=== PATIENT | female | born 1945 | race Caucasian/White ===

== ENCOUNTER → 2017-05-14 | Outpatient (CLI) | payer MEDICARE, BC ==
[~2017-05-14] MED LIST: AMLO10TA2 PO; ASPI-146 PO; COMMODE 3-IN-11 MIS; CPMMACHINE; CYAN1TAB24 PO; DESM1TAB16 PO; ENOX40IN SQ; ESTR1TAB PO; FENO50TA PO; LIPI20TA PO; LISI40TA PO; NEXI40CA PO; NORC5TAB PO; WALKER WHEELS/F1 MIS
[2017-05-14 10:36] LABS: AUTOMATED NEUTROPHIL # 2.5 TH/MM3 (1.8-7.7); BASOPHIL # 0.1 TH/MM3 (0-0.2); BASOPHIL % 1.2 % (0.0-2.0); EOSINOPHIL # 0.1 TH/MM3 (0-0.4); EOSINOPHIL % 2.3 % (0.0-4.0); HEMATOCRIT 39.2 % (35.0-46.0); HEMO FLAGS DIFF FINAL; LYMPH % 25.7 % (9.0-44.0); LYMPHOCYTE # 1.1 TH/MM3 (1.0-4.8); MEAN CELL VOLUME 87.1 FL (80.0-100.0); MEAN CORPUSCULAR HEMOGLOBIN 28.8 PG (27.0-34.0); MONO % 12.1 % (0.0-8.0); NEUT % 58.7 % (16.0-70.0); PLATELET COUNT 287 TH/MM3 (150-450); RED CELL DISTRIBUTION WIDTH 14.3 % (11.6-17.2); WHITE BLOOD COUNT 4.2 TH/MM3 (4.0-11.0)
[2017-05-14 10:37] LABS: BLOOD, URINE NEG (NEG); GLUCOSE,URINE NEG (NEG); KETONE, URINE NEG (NEG); NITRITE,URINE NEG (NEG); PH, URINE 7.5 (5.0-8.5); SQUAMOUS EPITHELIAL CELL URINE 1 /hpf (0-5); URINE COLOR YELLOW (YELLW/STRAW)
[2017-05-14 10:42] LABS: COMMENT (UR) CULT NOT INDICATED; CULTURE IF INDICATED CULT NOT INDICATED
[2017-05-14 10:46] LABS: APTT (PATIENT) 25.7 SEC (24.3-30.1)
[2017-05-14 10:58] LABS: ANION GAP 7 MEQ/L (5-15); AST (GOT) 19 U/L (15-37); BICARBONATE 26.2 MEQ/L (21.0-32.0); BLOOD UREA NITROGEN 13 MG/DL (7-18); CHLORIDE 104 MEQ/L (98-107); GLOMERULAR FILTRATION RATE 69 ML/MIN (>89); GLUCOSE,FASTING 86 MG/DL (74-99); POTASSIUM 4.1 MEQ/L (3.5-5.1); SODIUM (NA) 137 MEQ/L (136-145)
[2017-05-14 10:59] LABS: ALT (GPT) 21 U/L (10-53)
[2017-05-14 11:01] LABS: ALKALINE PHOSPHATASE 50 U/L (45-117); TOTAL BILIRUBIN ADULT 0.6 MG/DL (0.2-1.0)
[2017-05-14 11:07] LABS: WESTERGREN SEDIMENTATION RATE 5 mm/hr (0-30)
--- NOTE | 2017-05-14 11:11 | RADRPT ---
EXAM DATE/TIME: 05/14/2017 10:46 [facility] COMPARISON: KNEE LEFT LTD (1 OR 2VWS), July 28, 2015, 13:32. INDICATIONS : Evaluate for pneumothorax, pneumonia and communicable diseases. Pre-op for right knee replacement. MEDICAL HISTORY : Hypertension. SURGICAL HISTORY : None. ENCOUNTER: Initial ACUITY: 1 day PAIN SCORE: 0/10 LOCATION: Bilateral chest FINDINGS: The cardiac and mediastinal contours are within normal limits. There is a large hiatal hernia. The vidal ngs are clear. There are degenerative changes in the thoracic spine with a mild rotatory scoliosis. CONCLUSION: 1. Hiatal hernia. 2. No acute cardiopulmonary findings. Danilo Joseph MD on May 14, 2017 at 11:09 Board Certified Radiologist. This report was verified electronically.
--- NOTE | 2017-05-15 12:01 | EKG ---
Date Performed: 05/14/2017 Time Performed: 10:11:51 PTAGE: 71 years EKG: Sinus rhythm LOW QRS VOLTAGE IN PRECORDIAL LEADS BORDERLINE ECG Compared to prior tracing no significant change PREVIOUS TRACING :07/12/15 DOCTOR: Jorden Niño Interpretating Date/Time 05/15/2017 12:00:45
== END ==
LOC: CPRE 09:50
PROVIDERS: ATTEND Orthopaedic Surgery
DX: Z01.810 Encounter for preprocedural cardiovascular examination (principal); Z01.811 Encounter for preprocedural respiratory examination; Z01.812 Encounter for preprocedural laboratory examination; Z96.60 Presence of unspecified orthopedic joint implant; M25.50 Pain in unspecified joint; M79.609 Pain in unspecified limb; M17.11 Unilateral primary osteoarthritis, right knee; R94.31 Abnormal electrocardiogram [ECG] [EKG]
CPT/HCPCS: 36415; 71020; 80053; 81001; 85025; 85610; 85652; 85730; 93005

== ENCOUNTER 2017-05-30 07:02 | Inpatient (IN) | payer MEDICARE, BC ==
[~2017-05-30] VITALS: Ht 157.5 cm; Wt 61.8 kg
[~2017-05-30 07:02] MED LIST changes: -ASPI-146 PO; -COMMODE 3-IN-11 MIS; -CPMMACHINE; -DESM1TAB16 PO; -ENOX40IN SQ; -NORC5TAB PO; -WALKER WHEELS/F1 MIS
[2017-05-30] MEDS ORDERED: SODIUM CHLOR 0.9% 250 ML INJ 250 ML ONE (08:22)
[2017-05-30] MEDS ORDERED: ceFAZolin 2 GM PREMIX 50 ML ONE (08:22)
[2017-05-30] MEDS ORDERED: VANCOMYCIN HCL 1000 MG VIAL ONE ×2 (08:22→09:19)
[2017-05-30] MEDS ORDERED: DEXAMETHASONE SOD PHOS 20 MG/5 ML VIAL ONE (08:22)
[2017-05-30] MEDS ORDERED: POVIDONE IODINE 5% (ANTISEPSIS KIT) 4 APPLICATIONS EACH NARE PRN (08:30)
[2017-05-30] MEDS ORDERED: METOPROLOL TARTRATE 25 MG TAB PO PRN (08:30)
[2017-05-30] MEDS ORDERED: INSULIN HUMAN REGULAR 1,000 UNITS/10 ML VIAL SQ PRN (08:30)
[2017-05-30] MEDS ORDERED: ceFAZolin 2 GM PREMIX 50 ML IV SCH (08:30)
[2017-05-30] MEDS ORDERED: VANCOMYCIN 1000 MG/NS 250 ML (for <70 kg) IV SCH ×2 (08:30)
[2017-05-30] MEDS ORDERED: LACTATED RINGER'S 1000 ML IV PRN (08:30)
[2017-05-30] MEDS ORDERED: CHLORHEXIDINE GLUCONATE 2 % 1 PACK (2 CLOTHS) TOPICAL PRN (08:30)
[2017-05-30] MEDS ORDERED: SODIUM CHLORID 0.9% 500 ML IV PRN (08:30)
[2017-05-30] MEDS ORDERED: POVIDONE IODINE 7.5% SCRUB 118 ML BOTTLE TOPICAL SCH (08:30)
[2017-05-30] MEDS ORDERED: DEXAMETHASONE SOD PHOS 20 MG/5 ML VIAL IV SCH (08:45)
[2017-05-30] MEDS ORDERED: TRANEXAMIC ACID INJ 618 MG in SODIUM CHLORIDE 0.9% INJ 100 ML IV SCH ×2 (09:00→13:00)
[2017-05-30] MEDS ORDERED: ROPIVACAINE PERI-ARTICULAR INJECTION. P-ARTICULR SCH ×5 (09:00)
[2017-05-30] MEDS ORDERED: GENTAMICIN SULFATE 80 MG/2 ML VIAL ONE (09:18)
[2017-05-30] MEDS ORDERED: ACETAMINOPHEN 1000 MG/100 ML 100 ML IV ONE (09:33)
[2017-05-30] MEDS ORDERED: FAMOTIDINE 20 MG/2 ML VIAL ONE (09:33)
[2017-05-30] MEDS ORDERED: BUPIVACAINE LIPOSOME PF 1.3% 20 ML VIAL ONE (09:45)
[2017-05-30] MEDS: SODIUM CHLOR 0.9% 1000 ML INJ 1,000 ML IV SCH (11:31)
--- NOTE | 2017-05-30 11:33 | PD.OP ---
cc: Curt Glass MD Operative Report Date of Surgery: May 30, 2017 Preoperative Diagnosis: Right knee severe osteoarthritis Postoperative Diagnosis: Same Procedure: Right total knee arthroplasty Anesthesia: Adductor canal block and general Surgeon: Curt Glass Air Commodore(s): RONNI Lerma The surgical procedure was assisted by my Advanced Registered Nurse Practitioner. My AGENCY OPERATOR presence was necessary throughout this case for the manipulation and positioning of the surgical extremity. My AGENCY OPERATOR was assisting me throughout the duration of this procedure. The skill set of an Advance Registered Nurse Practitioner was medically necessary to complete this procedure. During the surgical case, the rn neurosurgical was working at the back table and the Advance Registered Nurse Practitioner was directly assisting me. Operation and Findings: IMPLANTS: DePuy Attune: Patella: size 32. Femur, posterior stabilized size 5 narrow. Tibia, rotating platform size 3. Tibial insert, rotating platform, posterior stabilized size 5 mm thickness. ESTIMATED BLOOD LOSS: 100 cc TOURNIQUET TIME: 37 minutes at 250 mmHg pressure. JUSTIFICATION FOR PROCEDURE: The patient has end-stage osteoarthritis to the knee. There is an attached conservative measures pathway form in the chart that describes the nonoperative measures that were undertaken prior to consideration of surgical management. The patient understood the risks and benefits of surgical management. See my office notes for further details PROCEDURE: The patient was brought back to the operative theatre. Adequate anesthesia was obtained. The patient received intravenous vancomycin and Ancef. The lower extremity was prepped and draped in the usual sterile fashion.The leg was exsanguinated, the tourniquet was raised. A standard anterior incision was performed followed by medial parapatellar arthrotomy was performed. End-stage arthritis was identified. Osteotomy of the patella was performed. We drilled holes for the patella. We trialed the patella component. We placed an intramedullary guide into the distal femur. We ultimately resected 11 mm off of the distal femur in 5 degrees of valgus. The remnants of the ACL and PCL were resected. Osteotomy of the proximal tibia was performed, resecting 5 mm off of the medial side. This was done with 3 degrees of posterior slope using an extramedullary guide. The distal end of the guide was placed in the mid aspect of the ankle. The femur was sized, and four chamfer cuts were completed in 3 of external rotation. We then cut the central box in the distal femur to replace the PCL. We resected the remnants of the menisci and removed osteophytes off of the femur and tibia. We then trialed the knee. We punched the tibia for the keel, and then used standard technique to cement in components. Excess cement was removed. We trialed the knee again and the final polyethylene thickness was chosen to provide extension to 0 degrees, and flexion of 140 degrees to gravity. The ligaments were appropriately balanced. Lateral release was necessary to obtain excellent patellofemoral tracking. The tourniquet was released and adequate hemostasis was obtained. An intra- articular injection of a ropivacaine cocktail was injected. The posterior knee was inspected for excess cement, which was removed. The final polyethylene was put into position after thorough irrigation. We then closed deep fascia with a #2 Stratafix followed by skin with 2-0 Vicryl followed by alvarez. Postop plan is to weight-bear as tolerated. DVT prophylaxis will be performed with Chadd, ZOLTAN engle, early mobilization, and Lovenox followed by aspirin. Curt Glass MD May 30, 2017 11:33
[2017-05-30] MEDS ORDERED: ASPI-146 PO (11:35)
[2017-05-30] MEDS ORDERED: ENOX40IN SQ (11:35)
[2017-05-30] MEDS ORDERED: NORC5TAB PO (11:35)
[2017-05-30] MEDS ORDERED: diphenhydrAMINE HCL 50 MG/ML VIAL IV PUSH PRN (11:45)
[2017-05-30] MEDS ORDERED: BISACODYL 10 MG SUPP RECTAL PRN (11:45)
[2017-05-30] MEDS ORDERED: ONDANSETRON HCL 4 MG/2 ML VIAL IVP PRN (11:45)
[2017-05-30] MEDS ORDERED: ALUMINUM/MAGNESIUM/SIMETH 30 ML CUP PO PRN (11:45)
[2017-05-30] MEDS ORDERED: MORPHINE SULFATE 4 MG/ML INJ IV PUSH PRN (11:45)
[2017-05-30] MEDS ORDERED: ZOLPIDEM TARTRATE 5 MG TAB PO PRN (11:45)
[2017-05-30] MEDS ORDERED: NALOXONE HCL 0.4 MG/ML AMP IV PUSH PRN (11:45)
[2017-05-30] MEDS ORDERED: SODIUM CHLORIDE 0.9% FLUSH 5 ML FLUSH IVF PRN (11:45)
[2017-05-30] MEDS ORDERED: ACETAMINOPHEN/HYDROcodone 325 MG/5 MG TAB PO PRN (11:45)
[2017-05-30] MEDS ORDERED: MAGNESIUM HYDROXIDE SUSP 30 ML CUP PO PRN (11:45)
[2017-05-30] MEDS ORDERED: DO NOT ADM ANY ANTICOAGULANT DRUGS PRN (11:58)
[2017-05-30] MEDS ORDERED: ONDANSETRON HCL 4 MG/2 ML VIAL IV PUSH ONE (12:00)
[2017-05-30] MEDS ORDERED: ROCURONIUM INJ 50 MG/5 ML SYRINGE IV PUSH ONE (12:00)
[2017-05-30] MEDS ORDERED: ePHEDrine/NS 25 MG/5 ML SYR IV ONE (12:00)
[2017-05-30] MEDS ORDERED: Post-op Orders (for Pharmacy) MISC XX ONE (12:00)
[2017-05-30] MEDS ORDERED: MIDAZOLAM HCL 2 MG/2 ML VIAL IV ONE (12:00)
[2017-05-30] MEDS ORDERED: PROPOFOL 200 MG/20 ML AMP IV ONE (12:00)
[2017-05-30] MEDS ORDERED: GLYCOPYRROLATE 1 MG/5 ML SYRINGE IV PUSH ONE (12:00)
[2017-05-30] MEDS ORDERED: NEOSTIGMINE 3 MG/3 ML SYR IV ONE (12:00)
[2017-05-30] MEDS ORDERED: LIDOCAINE HCL 1% PF 5 ML AMPULE OTHER ONE (12:00)
--- NOTE | 2017-05-30 12:44 | RADRPT ---
EXAM DATE/TIME: 05/30/2017 12:14 [facility] COMPARISON: No previous studies available for comparison. INDICATIONS : Post op right knee surgery. MEDICAL HISTORY : None. SURGICAL HISTORY : None. ENCOUNTER: Initial ACUITY: 1 day PAIN SCORE: Non-responsive. LOCATION: Right knee. FINDINGS: AP and lateral views of the knee following arthroplasty reveals a prosthesis in anatomic alignment. F racture is not appreciated. CONCLUSION: Status post total knee arthroplasty. Dirk Joseph MD FACR Board Certified Radiologist. This report was verified electronically.
[2017-05-30] MEDS ORDERED: *morphine SULFATE 8 MG/ML PERIprocedure ONLY ONE ×2 (12:56→13:50)
[2017-05-30 16:00] VITALS: BP 122/68; PULSE 83; RESP 18; TEMP 96.1; O2SAT 98
--- NOTE | 2017-05-30 16:02 | HHI.DCPOC ---
Discharge Care Plan Diagnosis: (1) Status post total knee replacement, right (2) Primary localized osteoarthrosis, lower leg Your Health Problems Are: Difficulty with ADL Goals to Promote Your Health * To prevent worsening of your condition and complications * To maintain your health at the optimal level Directions to Meet Your Goals Take your medications as prescribed Follow your dietary instruction Follow activity as directed Keep your appointments as scheduled Take your immunizations and boosters as scheduled If your symptoms worsen call your PCP, if no PCP go to Urgent Care Center or Emergency Room Smoking is Dangerous to Your Health. Avoid second hand smoke Call the 24-hour hour crisis hotline for domestic abuse at Danilo Brown May 30, 2017 16:02
--- NOTE | 2017-05-30 16:03 | HHI.FF ---
Face to Face Verification Diagnosis: (1) Primary localized osteoarthrosis, lower leg (2) Status post total knee replacement, right Physical Therapy Gait training, Transfer training, bed to chair Knee: Total knee Right LE Weight Bearing: WB as tolerated Right LE Range of Motion: Active ROM Nursing Nursing: Rosemarie teaching Dressing Changes: Do not change dressing I have seen patient Leni Nowak on 05/30/17. My clinical findings support the need for the requested home health care services because: Limited ability to care for self High risk of falls I certify that my clinical findings support that this patient is homebound because: Post-op weakness Unsteady gait/balance Danilo Brown May 30, 2017 16:03
[2017-05-30] MEDS ORDERED: COMMODE 3-IN-11 MIS (16:05)
[2017-05-30] MEDS ORDERED: CPMMACHINE (16:05)
[2017-05-30] MEDS ORDERED: WALKER WHEELS/F1 MIS (16:05)
[2017-05-30 19:35] VITALS: BP 129/71; PULSE 77; RESP 18; TEMP 96.7; O2SAT 97
[2017-05-30] MEDS: SODIUM CHLORIDE 0.9% FLUSH 5 ML FLUSH IVF SCH (21:00)
[2017-05-30] MEDS ORDERED: ATORVASTATIN 20 MG TAB PO SCH (21:00)
--- NOTE | 2017-05-30 22:25 | MB ---
cc: ALISON CARNES Corrected Copy: 06/07/17 DATE OF CONSULTATION 05/30/2017 DATE OF [address] Glass. REASON FOR ADMISSION Total knee arthroplasty. HISTORY OF THE PRESENT ILLNESS The patient is a very pleasant 71-year-old female with a significant past medical history of hypertension. Also has a history of diabetes insipidus and arthritis. The patient has left knee done in the past. She had problems in the right knee for which she is taken care of by primary care doctor and by orthopedics later on. She failed outpatient therapy and she was recommended for surgery. She had surgery done today. She had right total knee arthroplasty. At present the patient has some achy feeling in the medial side of the right knee. Otherwise she has no other complaint. She is enjoying her food. After surgery in the recovery she had some nausea. PAST MEDICAL HISTORY As described above. MEDICATIONS Reviewed, please see EMR. ALLERGIES THE PATIENT HAS NO KNOWN DRUG ALLERGIES. REVIEW OF SYSTEMS As described in the history of present illness. Otherwise unremarkable for 10 systems. SOCIAL HISTORY The patient does not smoke. She drinks one cocktail almost every day and does not do any drugs. PHYSICAL EXAMINATION GENERAL: The patient is alert and oriented, well-built, well-nourished, lying on bed without any apparent distress enjoying her free of disease. VITAL SIGNS: Show the patient is afebrile, pulse is 83, respiratory rate is 18, blood pressure 122/68, pulse oximetry of 98% on 2 liters. HEENT: Head is atraumatic, normocephalic. Negative conjunctival icterus. Mouth unremarkable. NECK: Supple. No increased JVD. Negative thyromegaly. Central trachea. CHEST: Clear to auscultation. CARDIOVASCULAR: S1-S2 audible. Unable to hear any S3 gallop. ABDOMEN: Soft, no organomegaly. Positive bowel sounds. MUSCULOSKELETAL: Extremities no cyanosis or pedal edema appreciated. CENTRAL NERVOUS SYSTEM: Alert and oriented. Normal facial features. Moving her toes. SKIN: Warm and moist. PSYCHIATRIC: Appropriate mood and affect. LABORATORY DATA Investigations, blood test done on May 14 CBC and BMP within normal limits. PT, INR, APTT within normal limits. UA was within normal limits. ASSESSMENT 1. Right total knee arthroplasty for arthritis. 2. Hypertension. 3. Gastroesophageal reflux disease. 4. History of diabetes insipidus. 5. Arthritis. PLAN 1. Medications reviewed. Continue home medications as indicated. 2. Postop pain medication and analgesics as per Ortho. 3. Postop wound management and anticoagulant as per Ortho. 4. CBC tomorrow. 5. As per patient she is not on any medication for diabetes insipidus and she is doing well. She is followed by Dr. Church neuropsychology division chief as an outpatient. Thank you Dr. Glass for the consult. We will follow with you. Discussed with the patient. Alison Carnes MD JP/KK /5:36 PM /9:34 AM
[2017-05-30 23:18] VITALS: BP 134/76; PULSE 70; RESP 18; TEMP 96.7; O2SAT 98
[2017-05-31 04:08] VITALS: BP 117/74; PULSE 86; RESP 18; TEMP 97.3; O2SAT 97
[2017-05-31] MEDS: SODIUM CHLOR 0.9% 1000 ML INJ 1,000 ML IV SCH (07:31)
[2017-05-31] MEDS ORDERED: DEXAMETHASONE SOD PHOS 20 MG/5 ML VIAL IV ONE (07:45)
[2017-05-31 08:00] VITALS: BP 127/63; PULSE 82; RESP 18; TEMP 97.3; O2SAT 100
[2017-05-31 08:19] LABS: HEMATOCRIT 34.3 % (35.0-46.0); MEAN CELL VOLUME 88.4 FL (80.0-100.0); MEAN CORPUSCULAR HGB CONC 32.9 % (32.0-36.0); PLATELET COUNT 258 TH/MM3 (150-450); RED BLOOD COUNT 3.88 MIL/MM3 (4.00-5.30); RED CELL DISTRIBUTION WIDTH 14.1 % (11.6-17.2); REVIEW FLAG FINAL; WHITE BLOOD COUNT 15.8 TH/MM3 (4.0-11.0)
[2017-05-31] MEDS: SODIUM CHLORIDE 0.9% FLUSH 5 ML FLUSH IVF SCH (08:19)
[2017-05-31] MEDS ORDERED: PANTOPRAZOLE SOD 40 MG DELAYED RELEASE TAB PO SCH (09:00)
[2017-05-31] MEDS ORDERED: LISINOPRIL 20 MG TAB PO SCH (09:00)
[2017-05-31] MEDS ORDERED: ESTRADIOL 1 MG TAB PO SCH (09:00)
[2017-05-31] MEDS ORDERED: FENOFIBRATE 145 MG TAB PO SCH (09:00)
[2017-05-31] MEDS: ACETAMINOPHEN/HYDROcodone 325 MG/5 MG TAB PO PRN ×2 (09:51→15:19)
[2017-05-31] MEDS ORDERED: ENOXAPARIN SODIUM 40 MG/0.4 ML SYRINGE SQ SCH (11:00)
[2017-05-31 12:00] VITALS: BP 126/70; PULSE 82; RESP 18; TEMP 97.5; O2SAT 96
--- NOTE | 2017-05-31 12:35 | PD.ORT.PN ---
Subjective Post Op Day #: 1 Subjective Remarks Patient is OOB in chair with minimal pain to the right knee. Patient has been ambulatory and is wanting to go home today with home health. Objective Vitals Vital Signs Date Time Temp Pulse Resp B/P (MAP) Pulse Ox O2 Delivery O2 Flow Rate FiO2 05/31/17 12:00 97.5 82 18 126/70 (88) 96 05/31/17 10:51 18 05/31/17 08:00 97.3 82 18 127/63 (84) 100 05/31/17 04:08 97.3 86 18 117/74 (88) 97 05/30/17 23:18 96.7 70 18 134/76 (95) 98 05/30/17 19:35 96.7 77 18 129/71 (90) 97 05/30/17 19:00 Room Air 05/30/17 16:00 96.1 83 18 122/68 (86) 98 05/30/17 14:46 98.9 70 20 113/59 (77) 100 Nasal Cannula 2 05/30/17 14:00 70 20 113/59 (77) 100 Nasal Cannula 2 05/30/17 13:00 79 20 121/58 (79) 100 Nasal Cannula 2 05/30/17 12:45 80 20 159/70 (99) 100 Nasal Cannula 2 I/O 05/30/17 05/30/17 05/30/17 05/31/17 05/31/17 05/31/17 07:00 15:00 23:00 07:00 15:00 23:00 Intake Total 1150 ml 824 ml 460 ml Output Total 100 ml Balance 1050 ml 824 ml 460 ml Intake Oral 360 ml 360 ml IV Total 50 ml 464 ml 100 ml Other 1100 ml Output Estimated Blood Loss 100 ml # Voids 1 5 3 # Bowel Movements 0 0 Result Diagram: 05/31/17 0725 Procedures Right TKA Objective Remarks The patient's dressing is C/D/I. EHL/TA/G intact. Mild swelling to knee. No calf tenderness or swelling. 2+ pedal pulse. + SILT. Assessment & Plan Ortho Post Op Day #: 1 Problem List: Assessment and Plan POD #1: Right TKA 1. WBAT RLE 2. Lovenox followed by ASA for DVT prophylaxis 3. Ice to the right knee PRN 4. Stable for discharge home with home health today. 5. F/U with Dr. Glass or RONNI Treviño in the office as previously scheduled. Danilo Brown May 31, 2017 12:35
[2017-05-31] MEDS ORDERED: DOCUSATE SODIUM 100 MG CAP PO SCH (21:00)
[2017-05-31] MEDS ORDERED: MULTIVITAMINS/MINERALS THERAPEUTIC TAB PO SCH (21:00)
--- NOTE | 2017-06-02 17:41 | HHI.DS ---
Discharge Summary Admission Date May 30, 2017 at 07:02 Discharge Date: May 31, 2017 Admitting Diagnosis Primary localized OA, lower leg Status post total knee replacement, right. Diagnosis: (1) Status post total knee replacement, right Diagnosis: Principal ICD Codes: Z96.651 - Presence of right artificial knee joint (2) Primary localized osteoarthrosis, lower leg Diagnosis: Principal ICD Codes: M17.10 - Unilateral primary osteoarthritis, unspecified knee Status: Acute Procedures Right TKA Brief History This is a 71 year old female patient with severe OA of the right knee CBC/BMP: 05/31/17 0725 Significant Findings Laboratory Tests Test 05/31/17 07:25 White Blood Count 15.8 TH/MM3 (4.0-11.0) Red Blood Count 3.88 MIL/MM3 (4.00-5.30) Hemoglobin 11.3 GM/DL (11.6-15.3) Hematocrit 34.3 % (35.0-46.0) PE at Discharge The patient's dressing is C/D/I. EHL/TA/G intact. Mild swelling to knee. No calf tenderness or swelling. 2+ pedal pulse. + SILT. Hospital Course The patient was admitted to the hospital for severe OA of the right knee to have a right TKA. The patient tolerated surgery well with no complication. The patient is WBAT on the RLE. The patient is on Lovenox followed by ASA for DVT prophylaxis. The patient was discharged home with home health and will f/u with Dr. Glass or RONNI Treviño in the office as previously scheduled. Pt Condition on Discharge: Stable Discharge Disposition: Disch w/ Home Health Serv Discharge Instructions Diet Instructions: As Tolerated, No Restrictions, Diabetic Diet Activities You Can Perform: Weight Bearing as [place] Activities to Avoid: Strenuous Activity Follow up Referrals: Orthopedics with Curt Glass MD [facility]/ with NURSE PERSONAL BANKING ADVISOR - [phone] New Medications: Aspirin (Ecotrin Regular Strength) 325 Mg Tabdr 325 MG PO DAILY for Prevent Blood Clot, #30 TAB 0 Refills Start Aspirin after Lovenox is completed. Commode 3-in-1 (Commode 3-in-1) 1 Mis Mis EA .ROUTE DIRECTED, #1 0 Refills CPM-Continuous Passive Motion Machine (CPM-Continuous Passive Motion Machine) 1 Ea Device EA .ROUTE DIRECTED, #1 0 Refills Enoxaparin Inj (Enoxaparin Inj) 40 Mg/0.4 Ml Syr 40 MG SQ DAILY for Blood Clot Prevention, #10 SYRINGE 0 Refills Start Aspirin after Lovenox is completed. Hydrocodone-Acetaminophen ([place]) 5-325 mg Tab 1-2 TAB PO Q4H PRN for PAIN, #60 TAB 0 Refills Walker with Front Wheels (Walker with Front Wheels) 1 Mis Mis EA .ROUTE DIRECTED, #1 0 Refills Continued Medications: Amlodipine (Amlodipine) 10 Mg Tab 10 MG PO DAILY for Blood Pressure Management, #30 TAB 0 Refills Atorvastatin (Lipitor) 20 Mg Tab 20 MG PO HS for Cholesterol Management, #30 TAB 0 Refills Cyanocobalamin (B12) 1,000 Mcg Tab 1 TAB PO every other Sunday Esomeprazole DR (Nexium) 40 Mg Capdr 40 MG PO DAILY, CAP 0 Refills Estradiol (Estradiol) 1 Mg Tab 1 MG PO DAILY for Estrogen Supplements, #30 TAB 0 Refills Fenofibrate (Tricor) 145 Mg Tab 145 MG PO DAILY, #30 TAB 0 Refills Takw with food. Lisinopril (Lisinopril) 40 Mg Tab 40 MG PO DAILY for Blood Pressure Management, #30 TAB 0 Refills Danilo Brown Jun 02, 2017 17:41
== END 2017-05-31 16:06 | disposition home health service (06) | DRG 470 ==
LOC: HSDI 07:02 → N06B 15:17
PROVIDERS: ADMIT Orthopaedic Surgery; ATTEND Orthopaedic Surgery
PROC: 0SRC0J9 Replacement of Right Knee Joint with Synthetic Substitute, Cemented, Open Approach (ICD-10-PCS; principal; 2017-05-30 09:42)
DX: M17.11 Unilateral primary osteoarthritis, right knee (principal); I10 Essential (primary) hypertension; K21.9 Gastro-esophageal reflux disease without esophagitis; M25.761 Osteophyte, right knee; R11.0 Nausea
CPT/HCPCS: 73560; 85027; 86850; 86900; 86901; 94150; C1776; C9290; J0131; J0690; J0735; J1100; J1580; J1650; J1885; J2250; J2270; J2405; J2710; J2795; J3010; J3370; J7030; J7050; L1830